=== PATIENT | female | born 1995 | race African-American/Black ===

== ENCOUNTER 2024-10-24 17:33 | Emergency (ER) | payer OTHER | END 2024-10-24 19:26 | disposition home or self-care (01) | LOC: ERS 17:33 | DX: S11.81XA Laceration without foreign body of other specified part of neck, initial encounter (principal); S10.0XXA Contusion of throat, initial encounter; V89.2XXA Person injured in unspecified motor-vehicle accident, traffic, initial encounter | CPT/HCPCS: 72040; 99282 ==